=== PATIENT | female | born 1960 | race Two or more races ===

== ENCOUNTER 2022-12-09 07:10 | Outpatient (CLI) | payer OTHER ==
[~2022-12-09 07:10] MED LIST: CALTRATE 600 W-1 TAB PO; NEXIUM40 MG/PACK PO; SYNTHROID50 MCG PO; TRISPEC-SF LIQ120 ML PO; [UNRECOGNIZED DRUG - OTHER]; [UNRECOGNIZED DRUG - OTHER] PO
== END 2022-12-09 07:32 | disposition home or self-care (01) ==
LOC: LAB 07:10
PROVIDERS: ATTEND Internal Medicine Gastroenterology
DX: R74.01 Elevation of levels of liver transaminase levels (principal)

== ENCOUNTER 2022-12-09 07:52 | Outpatient (CLI) | payer OTHER | END 2022-12-09 07:57 | disposition home or self-care (01) | LOC: SONOGRAMA 07:52 | PROVIDERS: ATTEND Internal Medicine Gastroenterology | DX: R74.01 Elevation of levels of liver transaminase levels (principal) ==

== ENCOUNTER 2023-01-27 07:09 | Outpatient (CLI) | payer OTHER | END 2023-01-27 07:11 | disposition home or self-care (01) | LOC: TOM 07:09 | PROVIDERS: ATTEND Internal Medicine Hepatology | DX: R10.11 Right upper quadrant pain (principal); R10.32 Left lower quadrant pain ==

== ENCOUNTER 2023-06-19 13:57 | Outpatient (CLI) | payer OTHER | END 2023-06-19 14:01 | disposition home or self-care (01) | LOC: SONOGRAMA 13:57 | PROVIDERS: ATTEND Pathology Anatomic Pathology & Clinical Pathology | DX: R22.1 Localized swelling, mass and lump, neck (principal) ==